=== PATIENT | female | born 1945 | race Two or more races ===

== ENCOUNTER 2018-11-07 14:03 | Outpatient (CLI) | payer OTHER | END 2018-11-07 14:21 | disposition home or self-care (01) | LOC: TOM 14:03 → EDBD 14:03 → TOM 14:21 | DX: R51 Headache (principal) | CPT/HCPCS: 70470; Q9965 ==

== ENCOUNTER → 2018-11-07 14:35 | Outpatient (CLI) | payer OTHER | END | disposition home or self-care (01) | LOC: LAB 14:35 → EDBD 14:35 | DX: D50.8 Other iron deficiency anemias (principal); E03.8 Other specified hypothyroidism; E78.2 Mixed hyperlipidemia; N93.0 Postcoital and contact bleeding; J11.1 Influenza due to unidentified influenza virus with other respiratory manifestations; R82.79 Other abnormal findings on microbiological examination of urine ==

== ENCOUNTER 2021-02-21 12:22 | Outpatient (CLI) | payer OTHER | END 2021-02-21 12:36 | disposition home or self-care (01) | LOC: RAD 12:22 | PROVIDERS: ATTEND Internal Medicine Hematology & Oncology | DX: D24.2 Benign neoplasm of left breast (principal); R31.9 Hematuria, unspecified; N60.22 Fibroadenosis of left breast ==